=== PATIENT | female | born 1970 ===

== ENCOUNTER → 2021-10-22 | Outpatient (CLI) | payer SELFPAY ==
[2021-10-27 14:11] LABS: HPV 16 Negative (Negative); HPV 18 Negative (Negative); HPV OTHER HR TYPES Positive (Negative)
== END | disposition home or self-care (01) ==
LOC: LAB SHORT 18:38 → LAB 18:38 → LAB FUT 10-22 15:30
PROVIDERS: Family Medicine
DX: Z01.419 Encounter for gynecological examination (general) (routine) without abnormal findings (principal)
CPT/HCPCS: 87624; 87625; G0123